=== PATIENT | female | born 1945 | race Caucasian/White ===

== ENCOUNTER 2017-05-01 16:05 | Inpatient (IN) | payer MEDICARE, BC ==
[~2017-05-01] VITALS: Ht 154.9 cm; Wt 85.4 kg
--- NOTE | ~2017-05-01 | DS ---
PATIENT'S NAME: Emile TRIANA [facility] AGE: 72 Y [address] ROOM: [address] [place] [id number] [place] [facility] [place]: 05/01/2017 Discharge Summary DISCHARGE DATE: 05/04/2017 FAMILY PHYSICIAN: Jennie Narayanan APRN ATTENDING PHYSICIAN: Robel Razo CONSULTING PHYSICIAN: Anshu Byrnes MD, Psychiatry. DISCHARGE DIAGNOSES: 1. Delirium, acute. 2. Complex psychiatric history including depression disorder, anxiety disorder, dependent personality disorder. 3. Hypokalemia, replace. 4. Constipation, resolving. DISCHARGE MEDICATIONS: 1. Hydroxyzine 50 mg p.o. at bedtime. 2. Zyprexa 5 mg p.o. b.i.d. 3. Protonix 20 mg p.o. daily. 4. Effexor XR 150 mg two capsules p.o. daily. 5. Ibuprofen 600 mg p.o. every 6 hours p.r.n. pain. 6. MiraLax 17 g p.o. daily. 7. Colace 100 mg p.o. daily. 8. Senna 2 tablets p.o. daily. PERTINENT LABORATORY DATA: The patient was found to have hypokalemia on 05/03/2017 with a potassium of 3.1. This was replaced and was found to be 3.9 on 05/04. CBC showed a white count of 11.2, hemoglobin 11.0, hematocrit 33.2, and platelets 254. RADIOLOGIC DATA: X-ray of the abdomen, 2-views, showed mild constipation, no free air, no obstruction, moderate scoliosis, convex left. HOSPITAL COURSE: Please refer to the admitting H and P dictated by Dr. Razo, for more detailed outline of the patient's presentation. Workup was initiated at the outside facility in [place], including CBC, CMS, urinalysis, drug screen, and CT scan all largely unremarkable. She had some mild hypernatremia and hyperkalemia. However, here was mildly hypokalemic, see the above- mentioned labs. The patient was admitted for her acute psychosis, which was felt likely secondary to her psychiatric medications. The patient was placed on heparin for DVT prophylaxis. We continued her hydroxyzine and Effexor which were her long-standing medications upon admission, but did pull the recently added psychiatric meds in case they were offending agents, which included holding the Seroquel and Lamictal. The patient slowly improved. She was able to take in p.o. on 05/02/2017. Labs were monitored and potassium was replaced. PATIENT'S NAME: Emile TRIANA [facility] AGE: 72 Y [address] ROOM: [place] [address] [place] [facility] [place]: 05/01/2017 Discharge Summary DISCHARGE DATE: 05/04/2017 FAMILY PHYSICIAN: Jennie Narayanan APRN ATTENDING PHYSICIAN: Robel Razo Diet was advanced as tolerated. She remained confused and was not orientated to self or place. Dr. Byrnes has seen the patient in consultation on 05/02/2017, and olanzapine 5 mg p.o. twice daily was initiated. The patient continued to improve. There was no dyskinetic movements which were evident upon admission. The patient ambulated with physical therapy and plans were started for transfer to [facility]. On 05/04/2017, the patient was able independently ambulate with a walker, but was complaining of some intermittent colicky right lower quadrant discomfort. An abdominal x-ray was obtained which did show some constipation. Suppository was given and the patient did have a BM on 05/04/2017 and ultimately was felt medically stable to transfer to [facility] on 05/04/2017. The patient was transferred to [facility] on 05/04/2017, in stable condition. We will have her continue to work with our colleagues on her psychiatric disorders and medications to manage them. The patient's and daughter were present at the day of discharge and agreed with this plan. We worked with Care Management to help with this transfer. Thank you for allowing us to help care for Mrs. Triana. JULIANN WHITE PA-C FOR MD KELLI SALAZAR/mira /[id number] P d: 05/05/17 0042 t: 05/10/17 1341, DISCHARGE SUMMARY
--- NOTE | ~2017-05-01 | HP ---
PATIENT'S NAME: REZA TRIANA [facility] AGE: 72 Y [address] ROOM: [address] [place], [place] [address] [place] [facility] [place]: 05/01/2017 History & Physical DISCHARGE DATE: FAMILY PHYSICIAN: PHYSICIAN, UNKNOWN ATTENDING PHYSICIAN: VERNON ZARATE DATE OF SERVICE: 05/01/2017 CHIEF COMPLAINT: Hallucinations, psychosis. HISTORY OF PRESENT ILLNESS: This is a 72-year-old female with extensive psychiatric history and largely benign otherwise past medical history, who presented to outside emergency department in [place] yesterday with progressive difficulty with engaging in conversation, noting visual and auditory hallucinations as well as "twitching movements." Psychiatric history is extensive and starts with depression, anxiety, panic disorder for which she has recently been admitted to [facility] where medications were titrated to include Atarax, Effexor, Lamictal, Neurontin, Seroquel, Klonopin, and benztropine. The patient's family at bedside, which includes her and daughter, note that most recent additions to her medications include Lamictal on April 22, benztropine on April 27, and Neurontin, though they are unable to give the date on that. Also patient's Seroquel dose has undergone significant adjustments over the last couple of weeks following her hospital stay at [facility]. The patient's family reports that she has not been herself since discharge from the psych unit at most recent visit and this progressed further yesterday. At the outside emergency department, labs were performed which include CBC, CMS, urinalysis, urine drug screen, and CT head done in the last 2 days all largely unremarkable with exception of creatinine mildly elevated at 1.52 without any suggestive history of prior renal disease. Also of note, patient is mildly hypernatremic and borderline hyperkalemic. Remainder of labs including white count and other infectious screening labs were largely benign. Currently, the patient is able to respond to simple questions and does follow some commands, but is otherwise unable to participate in further gathering of history. This is therefore gathered from records from [place] [facility], recent [facility] records as well as the and daughter at bedside. PAST MEDICAL HISTORY: 1. Depression, severe. 2. Anxiety disorder. 3. Panic disorder. 4. Irritable bowel syndrome. 5. GERD. PATIENT'S NAME: REZA TRIANA [facility] AGE: 72 Y [address] ROOM: [address] [address] [place] [facility] [place]: 05/01/2017 History & Physical DISCHARGE DATE: FAMILY PHYSICIAN: PHYSICIAN, UNKNOWN ATTENDING PHYSICIAN: VERNON ZARATE 6. History of colonic polyps. 7. Insomnia. SURGICAL HISTORY: Prior hysterectomy, cholecystectomy, appendectomy, and tonsillectomy. FAMILY HISTORY: Reviewed and noncontributory to current presentation. SOCIAL HISTORY: The patient has reported to not have been a smoker or alcohol user in the past. No significant illicit drug use. Family does report the patient had been responsible for taking her home meds and they are uncertain of what med she may have taken prior to her presentation. However, they do note that the pill bottles do not seem to suggest a large quantity of any certain medication taken recently. ALLERGIES: NO KNOWN DRUG ALLERGIES. MEDICATIONS: Currently being reconciled, but do include, 1. Atarax. 2. Effexor. 3. Lamictal. 4. Neurontin. 5. Benztropine. 6. Seroquel. REVIEW OF SYSTEMS: Complete review of systems performed and negative except as noted above in HPI. No fevers, chills, nausea, vomiting, constipation/diarrhea, or recent pain. PHYSICAL EXAMINATION: VITAL SIGNS: Temp 98.2, pulse 84, blood pressure 119/55, respirations 20, and saturating 93% on room air. GENERAL: The patient is restless, writhing around in bed, does not appear to be in acute distress currently and does make eye contact when addressed. HEENT: Head is normocephalic and atraumatic. Eyes are with dilated pupils, though these do constrict with reactive to light. Extraocular muscles are intact, pupils are approximately 7 mm in diameter without light reaction. No scleral icterus. No conjunctival injection. ENT: Mucous membranes are dry. No nasal discharge. NECK: Supple. No lymphadenopathy. No thyromegaly. No JVD. CARDIOVASCULAR: Regular rate and rhythm. No murmurs, rubs, or gallops PATIENT'S NAME: REZA TRIANA [facility] AGE: 72 Y [address] ROOM: [address] [address] [place] [facility] [place]: 05/01/2017 History & Physical DISCHARGE DATE: FAMILY PHYSICIAN: PHYSICIAN, UNKNOWN ATTENDING PHYSICIAN: VERNON ZARATE. 2+ pulses bilaterally in radial and dorsalis pedis. RESPIRATIONS: Clear to auscultation bilaterally with normal respiratory effort. Saturating well on room air. ABDOMEN: Soft, nontender, nondistended with normoactive bowel sounds. EXTREMITIES: Without appreciable edema. SKIN: Without significant lesions on skin of exposed trunk or extremities, though there are scattered ecchymoses all over bilateral legs and hips. NEUROLOGIC: The patient is alert, not oriented to person, place, or date. She does respond on occasion to certain questions with yes or no answers, but is unable to identify herself or her daughter currently. She does follow commands and exhibits good strength in bilateral upper and lower extremities. Remainder of neurologic exam is unable to be completed due to lack of cooperation. PSYCHIATRIC: The patient is agitated and restless, unable to determine current mood and affect with inability to discuss with the patient. LABS AND IMAGING: These are reported labs from outside facility as current labs here remain pending. White count 11.0, hemoglobin 12.5, and platelets 373. Sodium 146, potassium 4.8, chloride 108, bicarb 27, BUN 17, creatinine 1.52, glucose 99, calcium 9.5, magnesium 2.2, total protein 7.2, albumin 4.4, AST 28, ALT 38, alkaline phosphatase 109, total bilirubin 0.8. Urinalysis negative for any concern of infection or blood. CT scan done of the head 2 days ago noncontrasted was reportedly nonacute. Urine drug screen is negative for all agents tested at outside facility. ASSESSMENT: 1. Acute psychosis, likely secondary to medications. 2. Auditory and visual hallucinations. 3. History of depression and anxiety. 4. Acute kidney injury. 5. Hypernatremia. 6. Dehydration. PLAN: We will hold recently added psych medications to include Lamictal, Neurontin, and Seroquel as these are the most likely offenders at this point, given a largely benign metabolic, infectious and structural workup including CT of the head. We will continue her long-standing medications which she had done well on previously, which include hydroxyzine and Effexor. I suspect that given recent progression of worsening cognitive and mental status, the patient may have tried to treat this on her own and taken an additional quantity of her home medications, though we are at this point, unable to identify which this may have been. We will ask psychiatry to weigh in. Ideally, we will push fluids with D5 half-normal saline once able to place IV to assist with PATIENT'S NAME: REZA TRIANA [facility] AGE: 72 Y [address] ROOM: [place] [address] [place] [facility] [place]: 05/01/2017 History & Physical DISCHARGE DATE: FAMILY PHYSICIAN: PHYSICIAN, UNKNOWN ATTENDING PHYSICIAN: VERNON ZARATE hypernatremia, borderline hyperkalemia, and what I suspect to be a prerenal acute kidney injury. Currently, this is not feasible given patient's restlessness and noncompliance with exam. This may just take time for these medications to work their way out of the system, as the patient has never experienced symptoms such as this previously at least not according to her family. We will repeat a renal panel now and follow up psychiatric recommendations. The patient is a full code. I will treat with heparin 5000 units subcu t.i.d. for DVT prophylaxis. I spent 35 minutes on date of admission reviewing outside records as well as records from [facility] and [id number] evaluation of the patient and discussion with family. MD SEBASTIEN BRIGHT/mira /[id number] D: [id number] T: [id number] HISTORY & PHYSICAL
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
[~2017-05-01 16:05] MED LIST: BENTYL10 MG PO; EFFEXOR XR150 MG PO; EFFEXOR XR75 MG PO; KLONOPIN0.5 MG PO; LAMICTAL100 MG PO; LUVOX50 MG PO; MOTRIN600 MG PO; PRILOSEC20 MG PO; PROTONIX20 MG PO; REMERON15 MG PO; SEROQUEL100 MG PO; SEROQUEL25 MG PO; VISTARIL50 MG PO; ZYPREXA5 MG PO
--- NOTE | 2017-05-01 17:20 | NUR ---
D: Patient is 72 year old female that has a history of severe depression and anxiety. Patient has been hospitalized at [facility] for depression/anxiety and recently switched to [facility]. Patient was recently admitted to [facility] on 04/13/17 on inpatient status. Patient daughter reports that the last several days patient has been falling due to "tremors" that she has been experiencing related to medication. Daughter states that patient was previously ambulatory without any assistive device but has recently had to use a walker at home due to unsteady gate. Daughter states Tuesday am she called her mother and her mother stated that she fell again, when she checked on her mother around noon she was clutching a book, was non verbal, and having hallucinations. She was taken to [facility] and hospitalized through the night. On admission patient does have noted tremors and restlessness. She is constantly moving, pulling at clothes, incontinent of urine, and reaching in the air picking at objects that are not present. Patient can state her name and date of but is confused regarding time, place, and members of her family. Patient is unable to follow simple commands of squeezing hands, pupils are 6mm and reactive however eyes have rapid wandering.
[2017-05-01 17:58] LABS: ALBUMIN 3.8 gm/dL (3.5-5.0); ANION GAP 11.8 (10.0-19.0); CALCIUM 8.8 mg/dL (8.5-10.5); PHOSPHORUS 2.9 mg/dL (2.5-4.9); POTASSIUM 3.8 mMol/L (3.7-5.1)
[2017-05-02 04:33] LABS: BASOPHIL # 0.1 K/uL (0.0-0.2); BASOPHIL % 0.6 %; EOSINOPHIL # 0.1 K/uL (0.0-0.5); EOSINOPHIL % 0.6 %; HEMATOCRIT 33.2 % (33.0-46.0); IMMATURE GRANULOCYTE # 0.1 K/uL (0.0-0.3); IMMATURE GRANULOCYTE % 0.4 %; LYMPHOCYTE # 0.7 K/uL (0.8-4.0); LYMPHOCYTE % 6.5 %; MCH 30.7 pg (27.0-34.0); MCHC 33.1 gm/dL (32.0-36.5); MCV 92.7 fl (83.0-98.0); MONOCYTE # 1.3 K/uL (0.0-1.0); MONOCYTE % 11.4 %; MPV 8.7 fl (9.4-12.4); NEUTROPHIL % 80.5 %; NRBC % 0 /100WBC (0-0.00); PLATELET COUNT 254 K/uL (150-450); RBC 3.58 M/uL (3.50-5.50); RDW-CV 13.5 % (11.9-14.6); WBC 11.2 K/uL (4.0-11.0)
[2017-05-02 04:50] LABS: ALBUMIN 3.9 gm/dL (3.5-5.0); ANION GAP 12.8 (10.0-19.0); CALCIUM 8.7 mg/dL (8.5-10.5); CREATININE 0.9 mg/dL (0.5-1.1); POTASSIUM 3.8 mMol/L (3.7-5.1); TOTAL BILIRUBIN 1.8 mg/dL (0.0-1.5); TOTAL PROTEIN 6.9 g/dL (6.0-8.4)
--- NOTE | 2017-05-02 05:11 | NUR ---
Significant Event: ALERT TO SELF ONLY. NPO, SMALL SIPS OF WATER ALLOWED. NO PIV ACCESS. VERY RESTLESS. CONSTANTLY MOVING. WILL REACH OUT TOWARDS CEILING STATING, "I CAN'T REACH IT." POSSIBLE VISUAL HALLUCINATIONS. DENIES PAIN WHEN ASKED. INCONTINENT OF BLADDER. WILL NOT ANSWER QUESTIONS. IS CONSTANTLY CHEWING, ALTHOUGH SHE HAS NOTHING VISIBLY IN HER MOUTH. 1:1 SITTER. Follow up:
--- NOTE | 2017-05-02 13:53 | NUR ---
Significant Event: Pt denies pain. oriented to self only. Resting in bed most of shift but encouraged to get up to chair, up 1 assist to commode. Swallows fine, clear liquid diet, ADAT. 1:1 supervision for safety, impulsive and disoriented. Psych consult done, new order for Zyprexa 5mg PO BID, was having anxious movements to all extremities and lip smacking but has slowed down some since starting Zyprexa. VS stable. Poison control called for update. Family here briefly. Follow up:
--- NOTE | 2017-05-02 16:30 | NUR ---
Spoke to EDI Alas about patient. Patient is needing to see how she does with the medication adjustment before we look at discharge. I met with patient briefly at the bedside. Introduced myself to her and explained my role to her. She was not oriented so doubtful that she understands my role. Her family was not present and the 1:1 sitter stated they had just left. I will return tomorrow and try to meet with the family then, if not I will call and touch base with them via phone.
--- NOTE | 2017-05-03 01:48 | NUR ---
SIGNIFICANT EVENT: Pt alert, oriented to self. Pt resting in bed most of shift, but not actually sleeping. VSS on RA. Incontinent of urine. No BM this shift. 1:1 observation. 1PA to commode/chair. Less lip smacking this shift - still some tremors/restlessness. Clear liquid diet - advance as tolerated. No IV access. Cooperative with cares.
[2017-05-03 12:19] LABS: ANION GAP 10.1 (10.0-19.0); CALCIUM 9.4 mg/dL (8.5-10.5); POTASSIUM 3.1 mMol/L (3.7-5.1)
--- NOTE | 2017-05-03 13:04 | NUR ---
Met with today while patient was up sitting in the recliner. I introduced myself to him and explained my role with the CM department. I had just spoke with Dr. uV and EDI Alas and the goal is to try and get the patient to [facility] for medication management/titration. She is ambulating with the 1:1 aid. Her is in agreement with her returning to [facility] if they will accept. I will contact the access center to see what their census is and to let them know patient may be ready by tomorrow. Will continue to follow and offer supports.
--- NOTE | 2017-05-03 15:22 | NUR ---
Phone call from Cah at [facility] Access Center at 1400. I explained to Cha that patient will possibly be ready to discharge tomorrow and physician's feel that she needs to return to [facility] to have meds titrated. Cha will look at patient electronic record and call me back with whether or not she is a patient they can accept back or if she has to many medical needs. 1450 phone call from Cha stating that they will be able to accept patient back once she is medically cleared. Will contact Cha tomorrow with progress on patient and if ready for discharge.
--- NOTE | 2017-05-03 17:28 | NUR ---
Significant Event:Is awake & alert.Oriented to person & sometimes place.Is impulsive.Has had some abd.& back discomfort today.Has been amb in [place] with walker & 1 assist.Still tremors noted.Not much appetite.No hallucinations today.Brother was here today.Cooperative.Needs cues. Follow up:
--- NOTE | 2017-05-04 04:27 | NUR ---
Patient is alert and confused, reorients well. She was a little wired up at the beginning of the shift. Walked in the hallways with 1:1 staff. Calmed down after her daughter arrived. Had a potassium of 3.1, 40 mEq of potassium chloride PO x2 was given. Has no IV access. Has not rested much this shift. Was asking for/talking to Daisy, her daughter when RN was in the room. Possible discharge to [facility] today if able to ambulate better.
--- NOTE | 2017-05-04 09:57 | NUR ---
Arrived on the floor at 0925 and saw patient ambulating in the [place] independently with a walker. I spoke to EDI Alas and she states patient is medically stable and ready for discharge, will repeat lab on her potassium level this morning. I placed a call to [facility] Access Center at 0935 and spoke to Gracy. Gracy is questioning why patient needs to come to them. She wanted to know what Dr. Byrnes recommended when he saw her in the hospital. I explained to Gracy that Dr. Byrnes did not give a recommendation on his consult, but the Dr. Vu and EDI Alas state patient needs to come because we have tappered her off the majority of her psych meds and need assistance with adding them back. Gracy asked me to fax her H&P, Dr. Byrnes report and current med list which I faxed to her at [phone] to [phone] (fax). Gracy called me back at [phone] and said to have patient's nurse to call a the adult unit at [phone] for a nurse to nurse. I provided this to Alla, patient's nurse and she is making the call at [phone]. Will wait to hear back from [facility] after nurse to nurse is done.
[2017-05-04 10:52] LABS: ANION GAP 11.9 (10.0-19.0); CALCIUM 8.9 mg/dL (8.5-10.5); CREATININE 1.1 mg/dL (0.5-1.1); POTASSIUM 3.9 mMol/L (3.7-5.1)
--- NOTE | 2017-05-04 14:35 | NUR ---
PHONE REPORT(NURSE TO NURSE)GIVEN TO PEG--NURSE AT [facility] AT 1015.DISCHARGE INSTRUCTIONS GIVEN TO PT.& FAMILY & TRANSFER PAPERS WERE SENT WITH FAMILY TO TAKE WITH THEM TO [facility].WAS DISCHARGED PER W/C TO CAR FOR DISMISSAL TO [facility] WITH FAMILY--ACCOMP TO CAR BY CONTRACTS LAW PROFESSOR & FAMILY.
--- NOTE | 2017-05-04 14:35 | NUR ---
Is alert & oriented x3 alot of the time.Is forgetful & gets disoriented at times but orients back quickly.Is alittle less shakey today.Eating better today.Has been up amb by self with walker--Does well.Has to concentrate & think about how she is going to answer questions.Voiding ok.Had dulcolax suppository at 1400 & miralax also started at this time.Some abd.discomfort.Is cooperative.
[2017-05-04] MEDS ORDERED: OLANZAPINE5 MG PO (17:25)
[2017-05-04] MEDS ORDERED: MIRALAX17 GM PO (17:53)
[2017-05-04] MEDS ORDERED: COLACE100 MG PO (17:54)
[2017-05-04] MEDS ORDERED: SENNA8.6 MG PO (17:56)
[2017-05-11] MEDS ORDERED: DESYREL50 MG PO (11:36)
== END 2017-05-04 14:50 | DRG 897 ==
LOC: GMSU 16:05
PROVIDERS: Physician Assistant; ADMIT Internal Medicine
DX: F19.951 Other psychoactive substance use, unspecified with psychoactive substance-induced psychotic disorder with hallucinations (principal); N17.9 Acute kidney failure, unspecified; E87.0 Hyperosmolality and hypernatremia; E87.5 Hyperkalemia; E86.0 Dehydration; F32.9 Major depressive disorder, single episode, unspecified; F41.9 Anxiety disorder, unspecified; F60.89 Other specific personality disorders; E87.6 Hypokalemia; K59.00 Constipation, unspecified
CPT/HCPCS: J1644